=== PATIENT | male | born 1960 | race Caucasian/White ===

== ENCOUNTER → 2018-04-30 | Outpatient (CLI) | payer OTHER ==
[~2018-04-30] MED LIST: HYDR-5688 PO
[2018-04-30 13:30] LABS: ALBUMIN 3.7 gm/dl (3.4-5.0)
== END | disposition home or self-care (01) ==
LOC: C.LAB1850 12:06
PROVIDERS: ATTEND Family Medicine
DX: B35.1 Tinea unguium (principal)